=== PATIENT | male | born 1985 | race African-American/Black ===

== ENCOUNTER 2020-10-15 09:21 | Emergency (ER) | payer OTHER ==
[~2020-10-15] VITALS: Ht 182.9 cm; Wt 94.3 kg
[2020-10-15 09:21] VITALS: BP_SYST 144
--- NOTE | 2020-10-15 09:22 | NUR ---
BROUGHT BACK TO BED #4 AND TRIAGED. REPORT GIVEN TO ELVIA
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
--- NOTE | 2020-10-15 09:26 | NUR ---
PLACED TO GOWN: MONITOR ATTACHED, GOWN APPLIED FOR ASSESSMENT
--- NOTE | 2020-10-15 09:32 | NUR ---
ER at bedside examining patient.
--- NOTE | 2020-10-15 09:49 | NUR ---
X-RAY: TECH AT BEDSIDE ASSISTING PATIENT TO X-RAY FOR EXAM.
--- NOTE | 2020-10-15 09:50 | NUR ---
MD AT BEDSIDE: MD EXAMINED PATIENT.
[2020-10-15] MEDS ORDERED: NAPR-690 PO (09:52)
[2020-10-15 09:57] VITALS: BP_SYST 126
--- NOTE | 2020-10-15 09:59 | NUR ---
DISCHARGE: INSTRUCTIONS GIVEN, RX IN HAND, ALL QUESTIONS ANSWERED AT THIS TIME. PATIENT STABLE IN NO ACUTE DISTRESS AND OR DISCOMFORT.
== END 2020-10-15 09:59 | disposition home or self-care (01) ==
LOC: SED 09:21
DX: S43.401A Unspecified sprain of right shoulder joint, initial encounter (principal); W22.8XXA Striking against or struck by other objects, initial encounter; Y93.89 Activity, other specified; Y92.89 Other specified places as the place of occurrence of the external cause; Y99.8 Other external cause status
CPT/HCPCS: 73030; 99283